=== PATIENT | male | born 1970 | race Caucasian/White ===

== ENCOUNTER → 2020-06-05 | Outpatient (CLI) | payer BC, OTHER | LOC: SLEEP-COR 11:07 | DX: R06.83 Snoring (principal); G47.33 Obstructive sleep apnea (adult) (pediatric) | CPT/HCPCS: 95811 ==

== ENCOUNTER → 2021-12-07 | Outpatient (CLI) | payer BC | LOC: KOH-I 15:25 | DX: M79.672 Pain in left foot (principal) | CPT/HCPCS: 73630 ==

== ENCOUNTER → 2021-12-13 | Outpatient (CLI) | payer BC | LOC: KOH-I 16:18 | DX: Z53.9 Procedure and treatment not carried out, unspecified reason (principal) | CPT/HCPCS: 73700 ==